=== PATIENT | male | born 1940 | race Caucasian/White ===

== ENCOUNTER 2020-04-30 11:36 | Emergency (ER) | payer MEDICARE ==
[~2020-04-30 11:36] MED LIST: Iopamidol 370 76% 125 ML VIAL FS ONE; Sodium Chloride 0.9% 100 ML BAG ONE
[2020-04-30] MEDS ORDERED: Aspirin Chewable 81 MG TAB ONE (12:46)
[2020-04-30] MEDS ORDERED: Nitroglycerin 2% Ointment 1 INCH/1 GM Packet ONE (12:46)
--- NOTE | 2020-04-30 13:09 | RAD ---
RADIOGRAPH CHEST 1 VIEW: DATE: 04/30/2020 TIME: 12:59 PM HISTORY: 79-year-old male with chest pain COMPARISON: none FINDINGS: Focal patchy small alveolar infiltrate at left midlung zone. Left lower lung zone obscured by cardiomegaly. There may or may not be a large left lower lobe consol idation, with or without left pleural effusion. A lateral view would be useful. Right lung is grossly clear. No large pneumothorax IMPRESSION: 1) small infiltrate at left midlung zone: Pneumonia 2) questionable left lower lobe consolidation and or left pleural effusion, obscured by cardiomegaly.
[2020-04-30 13:12] LABS: #Lymphocytes 0.8 thou/uL (1.20-3.40); #Monocytes 0.6 thou/uL (0.11-0.59); #Neutrophils 8.8 thou/uL (1.40-6.50); %Basophils 0.3 % (0.0-1.0); %Eosinophils 0.1 % (0.0-10.0); %Lymphocytes 7.7 % (21.0-51.0); %Monocytes 5.4 % (0.0-10.0); %Neutrophils 86.6 % (42.0-75.0); Mean Corpuscular HGB CONC 29.4 g/dL (32.0-36.0); Mean Corpuscular Hemoglobin 25.2 pg (27.0-31.0); Mean Corpuscular Volume 85.5 fL (78.0-98.0); Mean Platelet Volume 8.2 fL (7.4-10.4); Platelet Count 99 thou/uL (130-400); RBC Distribution Width 16.6 % (11.5-14.5); Red Blood Cell (RBC) Count 4.76 mill/uL (4.70-6.10); White Blood Cell (WBC) Count 10.1 thou/uL (4.8-10.8)
[2020-04-30 13:19] LABS: MDiff Complete? YES
[2020-04-30 13:33] LABS: ALT (SGPT) 80 U/L (8-55); AST (SGOT) 88 U/L (5-34); Albumin 3.2 g/dL (3.4-4.8); Alkaline Phosphatase 114 U/L (40-110); Anion Gap 22 mmol/L (10-20); BUN (Urea Nitrogen) 68 mg/dL (8.4-25.7); Bilirubin, Total 1.5 mg/dL (0.2-1.2); CK (CPK) 187 U/L (30-200); Calc. Creatinine Clearance 0 mL/min (70-130); Calcium 7.9 mg/dL (7.8-10.44); Carbon Dioxide 17 mmol/L (23-31); Chloride 107 mmol/L (98-107); Globulin 2.7 g/dL (2.4-3.5); Glucose 169 mg/dL (83-110); Lipase 53 U/L (8-78); Potassium 4.7 mmol/L (3.5-5.1); Protein, Total 5.9 g/dL (5.8-8.1); Sodium 141 mmol/L (136-145)
[2020-04-30] MEDS ORDERED: Dexamethasone 10 MG/ML VIAL ONE (14:08)
[2020-04-30] MEDS ORDERED: Azithromycin 500 MG VIAL ONE (14:08)
[2020-04-30] MEDS ORDERED: cefTRIAXone\\ROCEPHIN 1 GM VIAL ONE (14:08)
[2020-04-30] MEDS ORDERED: Sodium Chloride 0.9% 250 ML 250 ML ONE (14:08)
[2020-04-30] MEDS ORDERED: Sodium Chloride 0.9% 100 ML ONE (14:08)
[2020-04-30 14:09] LABS: CKMB 6.7 ng/mL (0-6.6)
--- NOTE | 2020-04-30 14:49 | CT ---
EXAM: CT pulmonary angiogram with IV contrast and 3-D MIP reconstructions PROVIDED CLINICAL HISTORY: Chest pain COMPARISON: None FINDINGS: There is no evidence for central or segmental pulmonary embolus. The heart is enlarged. Vascular calc ification including coronary calcium is demonstrated. There is consolidation involving the left upper lobe. The lung parenchyma is suboptimally evaluated o n the basis of patient respiratory motion. Groundglass opacity involving the left lower lobe cannot be excluded. Large bilateral pleural fluid collections. No evidence for thoracic lymph node enlargement. The airway appears patent and of normal caliber. Multiple gallstones are seen. Incompletely characterized hypodensities seen involving the right hepat ic lobe. Extensive noncircumscribed fluid density is present within the subcutaneous adipose layer involving the lateral aspects of the lower chest and visualized upper abdomen presumably reflecting a nasarca. The osseous structures demonstrate no concerning lytic or blastic lesions. IMPRESSION: 1. No evidence for central or segmental pulmonary embolus. 2. Large bilateral pleural effusions. 3. Consolidation involving the left upper lobe and possibly also left lower lobe, compatible with pne umonia.
[2020-04-30] MEDS ORDERED: Sodium Chloride 0.9% 1,000 ML ONE (16:33)
[2020-04-30] MEDS ORDERED: Enoxaparin Sodium 30 MG/0.3 ML SYRINGE ONE (16:33)
[2020-04-30 16:59] LABS: Lactic Acid 2.6 mmol/L (0.5-2.2)
[2020-04-30 17:10] LABS: SARS-CoV-2 NAA Rapid Test Not Detected (NotDetected)
== END 2020-04-30 17:39 | disposition short-term general hospital (02) ==
LOC: MADERS 11:36
DX: A41.9 Sepsis, unspecified organism (principal); U07.1 COVID-19; J12.82 Pneumonia due to coronavirus disease 2019; I11.0 Hypertensive heart disease with heart failure; I50.9 Heart failure, unspecified; K21.9 Gastro-esophageal reflux disease without esophagitis; E78.5 Hyperlipidemia, unspecified; Z79.899 Other long term (current) drug therapy
CPT/HCPCS: 0240U; 36415; 71045; 71275; 80053; 82550; 82553; 83605; 83690; 84484; 85025; 85379; 86140; 87040; 93005; 96365; 96366; 96375; J0456; J0696; J1100; J1650; J3490; J7050; Q9967